=== PATIENT | female | born 1995 | race Caucasian/White ===

== ENCOUNTER 2017-12-05 08:07 | Day surgery (SDC) | payer OTHER ==
[~2017-12-05 08:07] MED LIST: CEFAZOLIN 2 GM/50 ML (PMX) 50 ML IVPB; SOD CHLORIDE 0.9% 1,000 ML IV
[2017-12-05] MEDS ORDERED: CEFAZOLIN 1 GM INJ (10:35)
[2017-12-05] MEDS ORDERED: NEOSTIGMINE 3 MG/3 ML SYRINGE ×2 (10:35→10:40)
[2017-12-05] MEDS ORDERED: LIDOCAINE 2% (SDV) 5 ML INJ (10:35)
[2017-12-05] MEDS ORDERED: SUCCINYLCHOLINE CHLORIDE 100 MG/5 ML SYG IV (10:35)
[2017-12-05] MEDS ORDERED: PROPOFOL 20 ML (10:35)
[2017-12-05] MEDS ORDERED: ROCURONIUM 50 MG INJ (10:35)
[2017-12-05] MEDS ORDERED: GLYCOPYRROLATE 0.4 MG INJ ×3 (10:35→10:40)
[2017-12-05] MEDS ORDERED: METOCLOPRAMIDE 10 MG INJ (10:36)
[2017-12-05] MEDS ORDERED: ONDANSETRON 4 MG INJ (10:36)
[2017-12-05] MEDS ORDERED: MEPERIDINE /PF (100 MG/2 ML) AMPULE (10:36)
[2017-12-05] MEDS ORDERED: LABETALOL HCL 20MG INJ IV (11:00)
[2017-12-05] MEDS ORDERED: MEPERIDINE 25 MG INJ IV (11:00)
[2017-12-05] MEDS ORDERED: MIDAZOLAM 1 MG/ML 2 ML INJ IV (11:00)
[2017-12-05] MEDS ORDERED: METOCLOPRAMIDE 10 MG INJ IV (11:00)
[2017-12-05] MEDS ORDERED: OXYCODONE/ACETAMINOPHEN (5/325) TAB PO (11:00)
[2017-12-05] MEDS ORDERED: ONDANSETRON 4 MG INJ IV (11:00)
[2017-12-05] MEDS ORDERED: FENTAnyl 50 MCG/ML VIAL IV ×3 (11:00)
[2017-12-05] MEDS ORDERED: HYDROmorphONE 1 MG/5 ML IV SYRINGE IV ×2 (11:00)
[2017-12-05] MEDS ORDERED: hydrALAzine 20 MG INJ IV (11:00)
[2017-12-05] MEDS ORDERED: DIPHENHYDRAMINE 50 MG INJ IV (11:00)
[2017-12-05] MEDS ORDERED: EPHEDrine SULFATE 50 MG/5 ML SYG IV (11:00)
[2017-12-05] MEDS: BUPIVACAINE 0.25% (MPF) 30 ML INJ (11:17)
[2017-12-05] MEDS: HYDROmorphONE 1 MG/5 ML IV SYRINGE IV (11:53)
[2017-12-05] MEDS ORDERED: HYDROCODONE/APAP (5/325) TAB PO (12:00)
[2017-12-05] MEDS: OXYCODONE/ACETAMINOPHEN (5/325) TAB PO (12:58)
== END 2017-12-05 13:27 | disposition home or self-care (01) ==
LOC: SDS 08:07
DX: K81.1 Chronic cholecystitis (principal)
CPT/HCPCS: 47562; 82962; 88304

== ENCOUNTER 2018-03-12 11:19 | Day surgery (SDC) | payer OTHER ==
[2018-03-12] MEDS ORDERED: PROPOFOL 40 ML (12:58)
[2018-03-12] MEDS ORDERED: LIDOCAINE 100 MG SYRINGE (12:58)
== END 2018-03-12 16:34 | disposition home or self-care (01) ==
LOC: GIL 11:19
DX: K21.0 Gastro-esophageal reflux disease with esophagitis (principal); K29.70 Gastritis, unspecified, without bleeding; R12 Heartburn; E11.9 Type 2 diabetes mellitus without complications; F41.9 Anxiety disorder, unspecified; E03.9 Hypothyroidism, unspecified; E66.01 Morbid (severe) obesity due to excess calories; Z68.42 Body mass index [BMI] 45.0-49.9, adult
CPT/HCPCS: 43239; 82962; 84703; 88305; 88312